=== PATIENT | female | born 1985 | race Caucasian/White ===

== ENCOUNTER 2018-06-13 05:45 | Inpatient (IN) ==
[2018-06-13] MEDS ORDERED: Ringers Solution, Lactated 1,000 ML ONE ×2 (06:12→09:03)
[2018-06-13] MEDS ORDERED: Metoclopramide 10 MG/2 ML VIAL IVP PRN ×2 (06:18→13:12)
[2018-06-13] MEDS ORDERED: Famotidine 20 MG/2 ML VIAL IVP PRN (06:18)
[2018-06-13] MEDS ORDERED: ceFAZolin 2,000 MG in D5% in Water 100 ML IVPB ONE (06:24)
[2018-06-13] MEDS ORDERED: Ringers Solution, Lactated 1,000 ML IVC SCH ×2 (06:30→13:12)
[2018-06-13 06:35] LABS: Eosinophils % 1.5 %; Hematocrit 35.5 % (35.3-44.9); Immature Granulocytes % 0.8 % (0-4); Lymphocytes % 22.3 %; Mean Corpuscular HGB Conc 33.8 g/dL (31.6-35.5); Mean Corpuscular Hemoglobin 29.1 pg (28.0-33.3); Mean Corpuscular Volume 86.2 fL (83.0-100.0); Mean Platelet Volume 9.8 fL (9.4-12.4); Monocytes % 6.8 %; Platelet Count 198 K/mcL (140-400); Red Blood Count 4.12 M/mcL (3.82-4.97); Segmented Neutrophils % 68.2 %
[2018-06-13 06:36] LABS: Basophils % 0.4 %; Eosinophils # 0.1 K/mcL (0.0-0.6); Lymphocytes # 1.8 K/mcL (0.6-4.6); Monocytes # 0.5 K/mcL (0.0-1.3); Neutrophils # 5.4 K/mcL (1.6-8.9)
[2018-06-13 06:57] LABS: Amphetamine Screen,Urine Negative ng/mL (Cutoff=1000); Barbiturate Screen,Urine Negative ng/mL (Cutoff=200)
[2018-06-13 06:58] LABS: Benzodiazepines Screen,Urine Negative ng/mL (Cutoff=300); Cannabinoid Screen,Urine Negative ng/mL (Cutoff = 50); Cocaine Screen,Urine Negative ng/mL (Cutoff= 300); Opiate Screen,Urine Negative ng/mL (Cutoff=300); Phencyclidine Screen,Urine Negative ng/mL (Cutoff=25)
[2018-06-13] MEDS ORDERED: CeFAZolin Premix DUPLEX 2,000 MG/50 ML BAG IVPB ONE ×2 (07:00)
--- NOTE | 2018-06-13 07:29 | Anesthesia Evaluation PreOp ---
Date of Encounter: 06/13/18 Time of Encounter: 07:26 - Past History Planned Operation: c secion Cardiac History: Denies any Significant Hx Pulmonary History: Denies Any Significant HX [employer] History: Denies Any Significant HX Other Medical History: GERD Anesthesia History: No Prior Anesthetic Complications, Past Anesthesia (c/s x2) : Yes Test: Positive Alcohol Use: none Drug use: none Medications and Allergies Formula Tablet 1 tab PO DAILY 06/13/18 [History] Allergy/AdvReac Type Severity Reaction Status Date / Time No Known Allergies Allergy Verified 06/13/18 06:34 - Meds/Allergy Pre-op Review Medications Reviewed: Yes Allergies Reviewed: Yes Beta Blockers on Current Med List: No Anesthesia Results - Labs 06/13/18 06:17 Anesthesia Exam 132/86 81 16 fht 125 Height: 5'7" Weight: 226 NPO (# of Hours): 10 Pain Scale: 2 Pain Scale Used: Numeric (1 - 10) - HEENT Pupil (Motor): Pupils equal Mallampati: I Teeth: Normal Oral Opening: Greater than 3 - [employer] LOC: Oriented [employer] Motor: Normal RUE, Normal LUE, Normal RLE, Normal LLE, Normal Face [employer] Sensory: Normal: RUE, LUE, RLE, LLE, Face - Cardiac Rhythm: Regular Murmur: None - Pulmonary Breath Sounds: bilateral Clear Respiratory Effort: Symmetrical Anesthesia Assess/Plan ASA Score: 2 Level of consciousness: Cooperative Anesthetic Plan: Spinal (risks discussed, questions answered, consented) Monitoring Plan: Standard Monitors Recovery Plan: PACU
[2018-06-13] MEDS ORDERED: *HR* Morphine Sulfate/PF 10 MG/10 ML AMPUL ONE (07:50)
[2018-06-13] MEDS ORDERED: *HR* FentaNYL (PF) 100 MCG/2 ML VIAL ONE (07:50)
[2018-06-13] MEDS ORDERED: *HR* Oxytocin 10 UNIT/ML VIAL IM ONE (07:50)
--- NOTE | 2018-06-13 08:22 | OB/GYN History & Physical ---
Date of Encounter: 06/13/18 Time of Encounter: 08:20 Assessment and Plan (1) Term Current visit: Yes Status: Acute Pt presents for repeat c-sec and BPS. She is aware of operative risks and signs appropriate consent. Will go ahead with surgery. History of Present Illness Chief complaint: Here for repeat and BPS HPI: Ms. Lentz is a 33 year old female with EDC 06/18/18 presents for repeat c- secc and BPS. has been uncomplicated. She reports +GFM, no vb or lof. She reports irregular uc's. Past Med Surg Social Fam HX - Past Medical History Source: patient, old records reviewed Medical history: no medical history Psychiatric history: no psych history - Past Surgical History Surgical History: - Social History Smoking Status: Never smoker Alcohol use: none Drug use: none - Family History Mother Living Status: Still Living Hx Family Cardiac Disorders: No Hx Family Respiratory Disorders: No Hx Family Cancer: No Hx Family GI Disorders: No Hx Family Genitourinary Disorders: No Hx Family Endocrine Disorder: No Hx Family Musculoskeletal Disorders: No Hx Family Neuromuscular Disorders: No Hx Family Neurologic Disorders: No Hx Family HEENT Disorders: No Hx Family Autoimmune Disorders: No Hx Family Reproductive Disorders: No Hx Family Psychosocial Disorders: No Hx Family Medical Disorders: No Obstetrical History - Pregnancies : 4 Para: 2 Medications and Allergies Formula Tablet 1 tab PO DAILY 06/13/18 [History] Allergy/AdvReac Type Severity Reaction Status Date / Time No Known Allergies Allergy Verified 06/13/18 06:34 Exam - Constitutional Constitutional: well developed, well nourished - HEENT HEENT: EOMI, PERRL - Neck Neck exam: full ROM - Lungs Respiratory exam: CTAB - Cardiovascular Cardiovascular exam: RRR - Abdomen Abdomen: Present: gravid - Extremities Extremities exam: full ROM Deep Tendon Reflex Grade: 2+ Normal Results Result Diagrams: 06/13/18 06:17 All other labs normal.
[2018-06-13] MEDS ORDERED: *HR* Phenylephrine 10 MG/ML VIAL ONE (08:31)
--- NOTE | 2018-06-13 09:07 | Anesthesia Procedures ---
Date of Encounter: 06/13/18 Time of Encounter: 09:05 Procedures: Anesthesia - Epidural/Spinal Patient ID/Chart reviewed: Yes Patient examined: Yes OB Eval: Gestational age: 38 OB Eval: : 3 OB Eval: Hx Para: 2 OB Eval: Dilated at (cm): 1 OB Eval: Contractions: Non-stressed pattern Consent Obtained: Yes Supplemental Oxygen: None/Room Air Site Prep: Aseptic Technique, Sterile prep and drape, 0.5% Chlorhexidine/Alcohol Patient position: upright Local Anesthetic: Lidocaine 1% Amount of Local Anesthetic used: 3 Interspace Used: L2-L3 Loss of Resistance (KAREN): No Blood: No CSF: Yes Paresthesia: No Spinal Needle Gauge: Other Spinal Dose: marcaine 12mg 0.3 fentanyl 10 mcg Procedure: aseptic, tolerated well, VSS, effective Vitals + FHT's: 106/78 88 15 fht 125
--- NOTE | 2018-06-13 10:01 | OB/GYN Procedure Note ---
Section - Date of procedure: 06/13/18 Preop diagnosis: desires repeat , desires sterilization Post-op diagnosis: same Procedure: section, repeat low transverse, bilateral tubal ligation Surgeon: Giles Casper Quantitated Blood Loss: 700 Was there an real estate assistant present: No Anatomic Pathologist: Mark Prater Anesthesia Type: Spinal Disposition: L&D Recovery Room - (s) A Infant Delivery Date: 06/13/18 Delivery Time: 09:00 Presentation: vertex Gender: Female Gram Weight: 3.35 kg at 1 minute: 9 at 5 minutes: 9 Shoulder Dystocia: not encountered Specimens collected: cord blood Placenta: spontaneous - Narrative Narrative: Patient was taken operating room where spinal anesthesia was administered. She is prepped draped in usual sterile fashion. Bladder was drained of clear urine with Mujica catheter. Cup was used to make Pfannenstiel skin incision which was sharply taken down the rectus fascia. Fascia was incised midline fascial incision was extended bilaterally. Plane was developed and rectus muscle rectus fascia superiorly this rectus muscles divided midline peritoneum centimeters and easily bladder blade was placed and bladder flap was developed and lower uterine segment. Scalpel was used to make low-transverse uterine incision. This was then extended bluntly bilaterally. Thin meconium-stained fluid was noted. was delivered from vertex presentation cord was clamped cut without difficulty. Placenta was delivered manually without difficulty and uterine cavity was massaged free of all residual tissue. Uterus was closed 0 Vicryl running lock stitch. There was some oozing from left aspect incision several [id number] stitches placed to obtain hemostasis. The entire incision was then oversewn. Distal 4 cm segment of each fallopian tube was double ligated with 2- 0 plain catgut suture. Again irrigation was performed hemostasis was ensured. Peritoneum was reapproximated in midline with 0 Vicryl. Fascia was then closed the Vicryl running manner. This point all sponge and instruments counts are correct skin edges reapproximated with 4-0 Vicryl. Patient was taken recovery in good condition.
[2018-06-13] MEDS ORDERED: Acetaminophen IV 1,000 MG/100 ML INFUS..BTL IVPB ONE (11:23)
[2018-06-13] MEDS ORDERED: Oxytocin 20 units/ LR 1000 mL 20 UNIT/1,000 ML BAG IVC ONE (11:23)
[2018-06-13] MEDS ORDERED: Ondansetron 4 MG/2 ML VIAL ONE (13:08)
[2018-06-13] MEDS ORDERED: Simethicone 80 MG TAB.CHEW PO PRN (13:12)
[2018-06-13] MEDS ORDERED: Sennosides 8.6 MG TABLET PO PRN (13:12)
[2018-06-13] MEDS ORDERED: Oxytocin 20 units/ LR 1000 mL 20 UNIT/1,000 ML BAG IVC SCH (13:12)
[2018-06-13] MEDS ORDERED: Rho Immune Globulin 1,500 UNIT SYRINGE IM ONE (13:12)
[2018-06-13] MEDS ORDERED: Ondansetron 4 MG/2 ML VIAL IVP PRN (13:12)
--- NOTE | 2018-06-13 13:42 | Anesthesia Evaluation Post Op ---
Date of Encounter: 06/13/18 Time of Encounter: 13:42 - Vital Signs Vital Signs: Vital Signs/O2 Sat, Most Current Temp Pulse Resp BP Pulse Ox 97.7 F 72 14 136/74 99 06/13/18 12:30 06/13/18 12:30 06/13/18 12:30 06/13/18 12:30 06/13/18 12:30 - Lungs Lungs: Clear Ascult./Percussion - Airway Airway: Non-obstructed - Cardiovascular Regular Rate - Mental Status Mental Status: Alert & Oriented, Answers Appropriately - Pain Pain Scale: 4 Pain Scale used: Numeric (1 - 10) - Nausea Vomiting Nausea Vomiting: Not Present - Hydration Hydration: NPO, Mujica catheter - Discharge PostOp Status: Transfer Patient to floor
[2018-06-13] MEDS: *HR* OxyCODONE/APAP 5/325 TABLET PO PRN (21:21)
[2018-06-14] MEDS: *HR* OxyCODONE/APAP 5/325 TABLET PO PRN ×3 (01:27→20:43)
[2018-06-14] MEDS: Ibuprofen 600 MG TABLET PO PRN ×4 (03:39→20:43)
--- NOTE | 2018-06-14 09:05 | OB/GYN Progress Note ---
Date of Encounter: 06/14/18 Time of Encounter: 09:03 - Assessment and Plan (1) delivery delivered Current Visit: Yes Status: Acute Continue routine post op / care Meeting appropriate milestones Anticipate discharge home tomorrow Subjective - Subjective Principal diagnosis: S/P CS with BPS Interval history: S/P Delivery Day 1 Pain well controlled VSS Lochia light and without clots Voiding without difficulty Tolerating regular diet and passing flatus Breast Feeding Anticipate discharge home tomorrow POC per consult with Dr Fortune Patient reports: appetite normal, voiding normally, pain well controlled, ambulating normally [place]: doing well, nursing well Objective - Vital Signs Latest vital signs: Vital Signs Temp Pulse Resp BP Pulse Ox 06/14/18 08:35 98.3 F 99 14 136/87 98 06/14/18 05:41 98.4 F 99 16 103/70 96 06/14/18 00:19 98.5 F 99 18 115/80 98 06/13/18 21:22 98.1 F 93 19 106/72 98 06/13/18 20:07 98.1 F 82 14 125/81 98 06/13/18 15:30 98.2 F 70 16 124/80 06/13/18 14:30 98.1 F 73 14 106/66 96 06/13/18 13:30 98.0 F 84 16 128/80 99 06/13/18 13:25 98.0 F 84 16 128/80 99 06/13/18 13:00 97.7 F 72 16 117/74 99 06/13/18 12:30 97.7 F 72 14 136/74 99 Intake and Output 06/13/18 06/14/18 06/14/18 23:59 07:59 15:59 Intake Total 0 / 0 Output Total 1000 / 1000 500 / 1300 800 / 1300 Balance -1000 / -1000 -500 / -1300 -800 / -1300 Intake: Oral 0 / 0 Output: Urine 500 / 1300 800 / 1300 Catheter 1000 / 1000 Other: Weight 101.06 kg Patient Weight 06/14/18 23:59 Weight 101.06 kg - Exam Lungs: bilateral: normal Chest: Normal S1, Normal S2 Extremities: Present: normal Abdomen: Present: normal appearance, soft. Absent: gravid Incision: Present: normal, dry, intact (Dressing C/D/I) Uterus: Present: normal, firm, tenderness (with palpation) Fundal Height: 0 (@U) - Labs Labs: Laboratory Results - last 24 hr 06/13/18 10:15 Baby's Blood Type O RH NEGATIVE Mother's Blood Type O RH NEGATIVE Rhogam Indicated NO
[2018-06-14] MEDS: Prenatal Vit/FA 1 EACH TABLET PO SCH (09:43)
[2018-06-14 10:31] LABS: Basophils % 0.2 %; Eosinophils # 0.2 K/mcL (0.0-0.6); Eosinophils % 1.5 %; Hematocrit 34.1 % (35.3-44.9); Hemoglobin 11.2 g/dL (11.5-15.4); Immature Granulocytes % 0.6 % (0-4); Lymphocytes # 1.3 K/mcL (0.6-4.6); Lymphocytes % 10.8 %; Mean Corpuscular HGB Conc 32.8 g/dL (31.6-35.5); Mean Corpuscular Hemoglobin 28.9 pg (28.0-33.3); Mean Corpuscular Volume 87.9 fL (83.0-100.0); Monocytes # 0.5 K/mcL (0.0-1.3); Monocytes % 4.2 %; Neutrophils # 9.8 K/mcL (1.6-8.9); Platelet Count 197 K/mcL (140-400); Red Blood Count 3.88 M/mcL (3.82-4.97); Red Cell Distribution Width 14.6 % (11.5-14.5); Segmented Neutrophils % 82.7 %
[2018-06-15] MEDS: *HR* OxyCODONE/APAP 5/325 TABLET PO PRN ×2 (03:31→11:05)
[2018-06-15] MEDS: Ibuprofen 600 MG TABLET PO PRN ×2 (03:31→11:05)
--- NOTE | 2018-06-15 08:18 | Discharge Summary ---
Date of Encounter: 06/15/18 Time of Encounter: 08:14 - Discharge Diagnosis (1) History of pre-eclampsia Priority: Secondary Status: Acute (2) Mother currently breast-feeding Priority: Secondary Status: Acute (3) delivery delivered Priority: Primary Status: Acute Comments: Pt meeting all post-op milestones. Pain well controlled. Tolerating regular diet, voiding, passing flatus. She reports good mood. - Discharge Medications Prescriptions: New Docusate [Colace] 100 mg PO BID #60 capsule Simethicone [Gas-X] 80 mg PO TID PRN tab.chew PRN Reason: Dyspepsia Ibuprofen [Motrin] 600 mg PO Q6HR PRN #60 tablet PRN Reason: Cramping OxyCODONE/APAP 5/325 [Percocet 5/325 MG] 1 each PO Q6HR PRN 7 Days #28 tablet PRN Reason: Moderate pain 4-6 No Action Formula Tablet 1 tab PO DAILY Home Medications: Formula Tablet 1 tab PO DAILY 06/13/18 [History] Docusate [Colace] 100 mg PO BID #60 capsule 06/15/18 [Rx] Ibuprofen [Motrin] 600 mg PO Q6HR PRN #60 tablet 06/15/18 [Rx] OxyCODONE/APAP 5/325 [Percocet 5/325 MG] 1 each PO Q6HR PRN 7 Days #28 tablet 06/15/18 [Rx] Simethicone [Gas-X] 80 mg PO TID PRN tab.chew 06/15/18 [Rx] Allergies/Adverse Reactions: Allergy/AdvReac Type Severity Reaction Status Date / Time No Known Allergies Allergy Verified 06/13/18 06:34 Data Procedures and tests throughout hospitalization: Laboratory Tests 06/13/18 06/13/18 06/13/18 06:17 06:42 10:15 WBC 8.0 RBC 4.12 Hgb 12.0 Hct 35.5 MCV 86.2 MCH 29.1 MCHC 33.8 RDW 14.0 Plt Count 198 MPV 9.8 Immature Gran % 0.8 Seg Neutrophils % 68.2 Lymphocytes % 22.3 Monocytes % 6.8 Eosinophils % 1.5 Basophils % 0.4 Neutrophils # 5.4 Lymphocytes # 1.8 Monocytes # 0.5 Eosinophils # 0.1 Basophils # 0.0 Urine Opiates Screen Negative Ur Barbiturates Screen Negative Ur Phencyclidine Scrn Negative Ur Amphetamines Screen Negative U Benzodiazepines Scrn Negative Urine Cocaine Screen Negative U Marijuana (THC) Screen Negative Ur Drug Screen Interp See Below Baby's Blood Type O RH NEGATIVE Mother's Blood Type O RH NEGATIVE Rhogam Indicated NO 06/14/18 09:35 WBC 11.8 H RBC 3.88 Hgb 11.2 L Hct 34.1 L MCV 87.9 MCH 28.9 MCHC 32.8 RDW 14.6 H Plt Count 197 MPV 10.0 Immature Gran % 0.6 Seg Neutrophils % 82.7 Lymphocytes % 10.8 Monocytes % 4.2 Eosinophils % 1.5 Basophils % 0.2 Neutrophils # 9.8 H Lymphocytes # 1.3 Monocytes # 0.5 Eosinophils # 0.2 Basophils # 0.0 Urine Opiates Screen Ur Barbiturates Screen Ur Phencyclidine Scrn Ur Amphetamines Screen U Benzodiazepines Scrn Urine Cocaine Screen U Marijuana (THC) Screen Ur Drug Screen Interp Baby's Blood Type Mother's Blood Type Rhogam Indicated Labs on day of discharge: Labs from last 24 hours 06/14/18 09:35 WBC 11.8 H RBC 3.88 Hgb 11.2 L Hct 34.1 L MCV 87.9 MCH 28.9 MCHC 32.8 RDW 14.6 H Plt Count 197 MPV 10.0 Immature Gran % 0.6 Seg Neutrophils % 82.7 Lymphocytes % 10.8 Monocytes % 4.2 Eosinophils % 1.5 Basophils % 0.2 Neutrophils # 9.8 H Lymphocytes # 1.3 Monocytes # 0.5 Eosinophils # 0.2 Basophils # 0.0 Date of admission: 06/13/18 05:45 Primary care physician: Dwayne Jean MD Discharging clinician: Demi Guerrero Anticipated date of discharge: 06/15/18 - Patient Status Disposition: Home, Self-Care Condition: Good Functional capacity at discharge: independent ambulation Overall status at discharge: patient is progressing back to baseline - Discharge Instructions Follow Up With: Dwayne Jean MD [Primary Care Provider] - Giles Casper MD [Partnered Physician] - - Diet and Activity Activity: increase activity as tolerated Diet: regular diet Hospital Course Reason for admission: section Delivery: section Episiotomy: none Laceration: 4th degree Other procedures: tubal ligation complications: none Discharge diagnosis: IUP at term delivered baby: female Hospital course: - Date of procedure: 06/13/18 Preop diagnosis: desires repeat , desires sterilization Post-op diagnosis: same Procedure: section, repeat low transverse, bilateral tubal ligation Surgeon: Giles Degroot Blood Loss: 700 Was there an assistant professor nurse education present: No Rn Examiner: Mark Prater Anesthesia Type: Spinal Disposition: L&D Recovery Room - Infant (s) Infant A Infant Delivery Date: 06/13/18 Infant Delivery Time: 09:00 Presentation: vertex Gender: Female Gram Weight: 3.35 kg at 1 minute: 9 at 5 minutes: 9 Shoulder Dystocia: not encountered Specimens collected: cord blood Placenta: spontaneous Time Attestation: Total time spent providing and/or coordinating discharge services: Time Spent: Less than 30 minutes - VTE Documentation of Mechanical Device: Graduated compression elastic hosiery Exam - Constitutional Vitals: Temp Pulse Resp BP Pulse Ox 97.7 F 81 16 123/87 98 06/14/18 20:31 06/14/18 20:31 06/14/18 20:31 06/14/18 20:31 06/14/18 08:35 General appearance IM: A&O X 3 - Respiratory Respiratory exam: Present: CTAB - Cardiovascular Cardiovascular exam IM: Present: RRR - GI/Abdominal GI/Abdominal exam IM: soft, no peritoneal signs Incision: intact (intact with steri strips, no s/sx infection present) - Uterine Tone: Firm
[2018-06-15 08:25] VITALS: BP 122/82
[2018-06-15] MEDS: Prenatal Vit/FA 1 EACH TABLET PO SCH (11:05)
== END 2018-06-15 11:59 | disposition home or self-care (01) | DRG 785 ==
LOC: 1NENULAB 05:45 → 1NENUOBS 10:20
PROVIDERS: ADMIT Obstetrics & Gynecology; ATTEND Obstetrics & Gynecology